=== PATIENT | male | born 1960 | race Caucasian/White ===

== ENCOUNTER 2016-12-11 07:48 | Day surgery (SDC) | payer OTHER ==
[~2016-12-11 07:48] MED LIST: ALENDRONATE SOD70 M2 PO; CARAFATE1 G2 PO; CELLCEPT500 M1 PO; COZAAR50 M1 PO; LIPITOR20 M1 PO; MULTIVITAMIN; OS-CAL 500+D31 EAC1 PO; PEPCID20 M1 PO; PEPTO-BISM262 MG/11 PO; PROGRAF1 M1 PO; PROTONIX40 M2 PO; TRAZODONE HCL50 M1 PO
[2016-12-11 08:45] LABS: BASO % 0.7 % (0-2); BASO ABSOLUTE COUNT 0.1 tho/cmm (0.0-0.2); EOS % 2.3 % (0-7); EOSINOPHIL ABSOLUTE COUNT 0.2 tho/cmm (0.0-0.7); HCT-HEMATOCRIT 38.6 % (36.0-53.5); HGB-HEMOGLOBIN 13.4 gm/dl (13.5-17.0); IMMATURE GRANULOCYTES ABSOLUTE 0.03 tho/cmm (0-0.03); IMMATURE GRANULOCYTES PERCENT 0.4 % (0-0.3); LYMPH % 11.3 % (20-45); LYMPH ABSOLUTE COUNT 0.8 tho/cmm (0.8-4.5); MCH (MEAN CORPUSCULAR HGB) 29.7 pg (28.0-32.0); MCHC MEAN CORPUSCULAR HGB CONC 34.7 % (32.0-36.0); MCV (MEAN CELL VOLUME) 85.6 fl (82.0-96.0); MEAN PLATELET VOLUME 8.8 cmc (9.4-12.4); MONO % 12.8 % (0-12); MONOCYTE ABSOLUTE COUNT 0.9 tho/cmm (0.0-1.2); NEUTROPHIL ABSOLUTE COUNT 5.3 tho/cmm (1.6-8.0); NEUTROPHIL-AUTOMATED 5.3 tho/cmm (1.6-8.0); NEUTROPHILS % 72.5 % (40-80); PLATELET COUNT 369 tho/cmm (150-450); RED BLOOD COUNT 4.51 mil/cmm (4.40-5.70); RED CELL DISTRIBUTION WIDTH 13.2 % (12.4-16.4); WHITE BLOOD COUNT 7.4 tho/cmm (4.0-10.0)
[2016-12-11 08:52] LABS: INR 1.2 INR (0.9-1.1); PROTHROMBIN TIME 14.2 SECONDS (9.0-13.6)
== END 2016-12-11 12:11 ==
LOC: SHSB 07:48
PROVIDERS: Internal Medicine Gastroenterology
PROC: 0FB23ZX Excision of Left Lobe Liver, Percutaneous Approach, Diagnostic (ICD-10-PCS; principal; 2016-12-11)
PROC: BF45ZZZ Ultrasonography of Liver (ICD-10-PCS; 2016-12-11)
DX: C85.13 Unspecified B-cell lymphoma, intra-abdominal lymph nodes (principal); Z79.83 Long term (current) use of bisphosphonates; Z79.899 Other long term (current) drug therapy; Z88.8 Allergy status to other drugs, medicaments and biological substances; Z91.041 Radiographic dye allergy status; Z90.89 Acquired absence of other organs; Z94.1 Heart transplant status; Z95.810 Presence of automatic (implantable) cardiac defibrillator; Z98.890 Other specified postprocedural states
CPT/HCPCS: J2250; J3010; J7030